=== PATIENT | male | born 1970 | race Caucasian/White ===

== ENCOUNTER 2021-12-13 09:10 | Emergency (ER) | payer OTHER ==
[~2021-12-13] VITALS: Ht 175.3 cm; Wt 75.0 kg
[2021-12-13 10:06] LABS: Urine Bacteria NONE SEEN /hpf (None Seen); Urine Blood Negative /uL (Negative); Urine Specific Gravity 1.005 (1.001-1.035); Urine WBC <1 /hpf (0 - 3)
[2021-12-13 10:56] LABS: Basophils # (auto) 0.1 10 ^3/uL (0-0.2); Basophils % (auto) 0.7 % (0.0-2.0); Eosinophils # (auto) 0.6 10 ^3/uL (0-0.8); Eosinophils % (auto) 4.1 % (0.0-7.0); Hematocrit 39.4 % (41.0-53.0); Hemoglobin 13.3 g/dL (13.5-17.5); Lymphocytes # (auto) 2.1 10 ^3/uL (0.4-5.4); Lymphocytes % (auto) 14.4 % (10.0-50.0); Mean Corpuscular Hemoglobin 29.4 pg (28.0-32.0); Mean Corpuscular Hgb Conc. 33.8 g/dL (32.0-36.0); Monocytes # (auto) 0.7 10 ^3/uL (0-1.3); Neutrophils # (auto) 10.8 10 ^3/uL (1.6-8.6); Neutrophils % (auto) 75.8 % (37.0-80.0); Red Blood Cells 4.53 10^6/uL (4.5-5.90); Red Cell Distribution Width 13.9 % (11.8-14.3); White Blood Cell 14.3 10^3/uL (4.4-10.8)
[2021-12-13 11:00] LABS: Albumin 2.9 g/dL (3.4-5.0); Calcium 8.8 mg/dL (8.5-10.1); Potassium 3.6 mmol/L (3.5-5.1)
[2021-12-13 11:04] LABS: BUN/Creatinine Ratio 9.8; Bilirubin, Total 0.5 mg/dL (0.2-1.0); Total Protein 7.7 g/dL (6.4-8.2)
[2021-12-13 11:55] VITALS: BP 117/63
== END 2021-12-13 12:07 | disposition home or self-care (01) ==
LOC: ER 09:10
DX: R42 Dizziness and giddiness (principal)
CPT/HCPCS: 36415; 70450; 80053; 81001; 85025; 93005

== ENCOUNTER 2022-05-07 11:56 | Emergency (ER) | payer OTHER ==
[~2022-05-07] VITALS: Ht 175.3 cm; Wt 75.0 kg
[2022-05-07 15:51] VITALS: BP 124/61
[2022-05-07] MEDS ORDERED: AZITTAB PO (15:58)
[2022-05-07] MEDS ORDERED: ALBU108A5 IN (15:58)
[2022-05-07] MEDS ORDERED: GABA100C9 PO (16:01)
[2022-05-07] MEDS ORDERED: IBUP600T28 PO (16:03)
== END 2022-05-07 16:01 | disposition home or self-care (01) ==
LOC: ER 11:56
DX: S80.02XA Contusion of left knee, initial encounter (principal); J18.9 Pneumonia, unspecified organism; Z20.822 Contact with and (suspected) exposure to COVID-19; W18.39XA Other fall on same level, initial encounter; Y93.89 Activity, other specified; Y92.89 Other specified places as the place of occurrence of the external cause; Y99.8 Other external cause status
CPT/HCPCS: 36415; 73562; 87426; 87804

== ENCOUNTER 2022-05-11 10:17 | Inpatient (IN) | payer OTHER ==
[~2022-05-11] VITALS: Ht 177.8 cm; Wt 74.0 kg
[~2022-05-11 10:17] MED LIST: ALBU108A5 IN; AZITTAB PO; GABA100C9 PO; IBUP600T28 PO
[2022-05-11 11:28] LABS: Hematocrit 37.2 % (41.0-53.0); Mean Corpuscular Hemoglobin 28.2 pg (28.0-32.0); Mean Corpuscular Hgb Conc. 32.2 g/dL (32.0-36.0); Mean Corpuscular Volume 87.4 fL (80.0-100.0); Red Blood Cells 4.26 10^6/uL (4.5-5.90); Red Cell Distribution Width 13.5 % (11.8-14.3)
[2022-05-11] MEDS ORDERED: AZITHROMYCIN 500MG/ 250ML 250 ML IV ONE (11:30)
[2022-05-11] MEDS ORDERED: cefTRIAXone 1GM/50ML D5W 50 ML IV ONE (11:30)
[2022-05-11 11:43] LABS: Basophils % (manual) 0 (0.0-2.0); Blast Cells 0; Eosinophils % (manual) 0 (0-7); Metamyelocytes % 0; Myelocytes % 0; Promyelocytes % 0; Reactive Lymphocytes 0
[2022-05-11 11:45] LABS: Albumin 2.7 g/dL (3.4-5.0); BUN/Creatinine Ratio 16.7; Calcium 8.1 mg/dL (8.5-10.1); Potassium 4.2 mmol/L (3.5-5.1)
[2022-05-11 11:50] LABS: Bilirubin, Total 1.1 mg/dL (0.2-1.0); Total Protein 6.9 g/dL (6.4-8.2)
[2022-05-11 13:38] LABS: Band Neutrophils % (manual) 10; Lymphocytes % (manual) 12 (10.0-50.0); Monocytes % (manual) 9 (0-12)
[2022-05-11] MEDS ORDERED: MORPHINE SULFATE INJ 2 MG/ml SYRG IV PRN (15:30)
[2022-05-11] MEDS ORDERED: ALBUTEROL SULF 2.5 MG/0.5ML(0.5%) NEB SOLN HHN PRN (15:30)
[2022-05-11] MEDS ORDERED: IPRATROPIUM BROM 0.5 MG/2.5ML INH SOL NEB PRN (15:30)
[2022-05-11] MEDS ORDERED: NITROGLYCERIN 0.4 MG SL TAB SL PRN (15:30)
[2022-05-11] MEDS ORDERED: methylPREDNISolone SOD SUCC 125 MG/2 ML VL IV ONE (15:45)
[2022-05-11] MEDS: SODIUM CHLORIDE 0.9% 1,000 ML IV SCH (16:11)
[2022-05-11 21:12] VITALS: BP 97/50
[2022-05-11] MEDS: HEPARIN SODIUM (PORCINE) 5000 UNITS/ML 1ML VIAL SC SCH (21:17)
[2022-05-11 22:00] VITALS: BP 97/50
[2022-05-11] MEDS: methylPREDNISolone SOD SUCC 125 MG/2 ML VL IV SCH (23:32)
[2022-05-12] MEDS ORDERED: CITA-73 PO (00:28)
[2022-05-12] MEDS ORDERED: ATOR80TA PO (00:28)
[2022-05-12] MEDS ORDERED: CLON-857 PO (00:28)
[2022-05-12] MEDS ORDERED: LEVE500T32 PO (00:28)
[2022-05-12 01:34] VITALS: BP 97/50
[2022-05-12 05:00] VITALS: BP 105/62
[2022-05-12] MEDS: HEPARIN SODIUM (PORCINE) 5000 UNITS/ML 1ML VIAL SC SCH ×3 (05:01→22:00)
[2022-05-12] MEDS: methylPREDNISolone SOD SUCC 125 MG/2 ML VL IV SCH ×3 (05:02→18:00)
[2022-05-12] MEDS: SODIUM CHLORIDE 0.9% 1,000 ML IV SCH ×2 (05:48→22:40)
[2022-05-12 06:39] LABS: Basophils # (auto) 0 10 ^3/uL (0-0.2); Basophils % (auto) 0.1 % (0.0-2.0); Eosinophils # (auto) 0 10 ^3/uL (0-0.8); Eosinophils % (auto) 0.1 % (0.0-7.0); Hematocrit 33.6 % (41.0-53.0); Hemoglobin 10.9 g/dL (13.5-17.5); Lymphocytes # (auto) 1.7 10 ^3/uL (0.4-5.4); Lymphocytes % (auto) 9.3 % (10.0-50.0); Mean Corpuscular Hemoglobin 28.3 pg (28.0-32.0); Mean Corpuscular Hgb Conc. 32.4 g/dL (32.0-36.0); Mean Corpuscular Volume 87.4 fL (80.0-100.0); Monocytes # (auto) 0.4 10 ^3/uL (0-1.3); Monocytes % (auto) 2.1 % (0.0-12.0); Neutrophils # (auto) 16.7 10 ^3/uL (1.6-8.6); Neutrophils % (auto) 88.4 % (37.0-80.0); Red Blood Cells 3.85 10^6/uL (4.5-5.90); Red Cell Distribution Width 13.8 % (11.8-14.3); White Blood Cell 18.8 10^3/uL (4.4-10.8)
[2022-05-12 07:12] LABS: BUN/Creatinine Ratio 23.2; Calcium 8.1 mg/dL (8.5-10.1); Potassium 4.8 mmol/L (3.5-5.1)
[2022-05-12 09:00] VITALS: BP 106/76
[2022-05-12] MEDS: levoFLOXacin 750MG 150 ML IV SCH (10:10)
[2022-05-12] MEDS ORDERED: IOHEXOL 300 MG/ML 100ML BOTTLE IJ ONE (12:05)
[2022-05-12] MEDS ORDERED: IOHEXOL 350 MG/ML 100ML IJ ONE (12:24)
[2022-05-12 13:14] VITALS: BP 120/60
[2022-05-12 16:33] VITALS: BP 110/71
[2022-05-12 22:00] VITALS: BP 110/67
[2022-05-13 05:00] VITALS: BP 119/68
[2022-05-13] MEDS: methylPREDNISolone SOD SUCC 125 MG/2 ML VL IV SCH ×4 (05:13→18:00)
[2022-05-13] MEDS: HEPARIN SODIUM (PORCINE) 5000 UNITS/ML 1ML VIAL SC SCH ×3 (05:14→22:00)
[2022-05-13 08:00] VITALS: BP 109/61
[2022-05-13 08:04] LABS: BUN/Creatinine Ratio 28.9; Calcium 8.5 mg/dL (8.5-10.1)
[2022-05-13 08:22] LABS: Hematocrit 37.6 % (41.0-53.0); Hemoglobin 12.2 g/dL (13.5-17.5); Mean Corpuscular Hemoglobin 28.6 pg (28.0-32.0); Mean Corpuscular Hgb Conc. 32.4 g/dL (32.0-36.0); Mean Corpuscular Volume 88.4 fL (80.0-100.0); Red Blood Cells 4.25 10^6/uL (4.5-5.90); Red Cell Distribution Width 13.8 % (11.8-14.3)
[2022-05-13 09:11] LABS: Basophils % (manual) 0 (0.0-2.0); Blast Cells 0; Eosinophils % (manual) 0 (0-7); Metamyelocytes % 0; Myelocytes % 0; Promyelocytes % 0; Reactive Lymphocytes 0
[2022-05-13] MEDS: levoFLOXacin 750MG 150 ML IV SCH (10:00)
[2022-05-13] MEDS: SODIUM CHLORIDE 0.9% 1,000 ML IV SCH (10:24)
[2022-05-13 12:00] VITALS: BP 124/73
[2022-05-13 16:00] VITALS: BP 131/76
[2022-05-13 18:29] LABS: Band Neutrophils % (manual) 17; Lymphocytes % (manual) 7 (10.0-50.0); Monocytes % (manual) 3 (0-12)
[2022-05-13 18:57] LABS: Urine Bacteria NONE SEEN /hpf (None Seen); Urine Blood Negative /uL (Negative); Urine Specific Gravity 1.024 (1.001-1.035); Urine WBC 1 /hpf (0 - 3)
[2022-05-13 19:04] LABS: Creatinine, Urine 104 mg/dL (30.0-125.0); Sodium Urine 41 mmol/L (40-220)
[2022-05-13 22:00] VITALS: BP 114/68
[2022-05-14] MEDS: SODIUM CHLORIDE 0.9% 1,000 ML IV SCH ×2 (00:26→15:00)
[2022-05-14] MEDS: methylPREDNISolone SOD SUCC 125 MG/2 ML VL IV SCH ×4 (05:59→18:00)
[2022-05-14] MEDS: HEPARIN SODIUM (PORCINE) 5000 UNITS/ML 1ML VIAL SC SCH ×3 (05:59→22:00)
[2022-05-14 08:00] VITALS: BP 143/78
[2022-05-14 08:30] VITALS: BP 143/78
[2022-05-14] MEDS: levoFLOXacin 750MG 150 ML IV SCH (10:18)
[2022-05-14 12:30] VITALS: BP 151/80
[2022-05-14 17:00] VITALS: BP 152/79
[2022-05-14 20:00] VITALS: BP 152/79
[2022-05-14 22:00] VITALS: BP 143/77
[2022-05-14] MEDS: DOXYCYCLINE 100MG/250ML 250 ML IV SCH (22:00)
[2022-05-14] MEDS: levETIRAcetam 500 MG TAB PO SCH (22:00)
[2022-05-15 05:00] VITALS: BP 137/69
[2022-05-15] MEDS: SODIUM CHLORIDE 0.9% 1,000 ML IV SCH ×2 (05:02→19:36)
[2022-05-15] MEDS: HEPARIN SODIUM (PORCINE) 5000 UNITS/ML 1ML VIAL SC SCH ×3 (05:02→22:27)
[2022-05-15 09:00] VITALS: BP 118/66
[2022-05-15] MEDS ORDERED: methylPREDNISolone SOD SUCC 40 MG/ML VL IV SCH (10:00)
[2022-05-15] MEDS: levETIRAcetam 500 MG TAB PO SCH ×2 (10:13→22:11)
[2022-05-15] MEDS: DOXYCYCLINE 100MG/250ML 250 ML IV SCH ×2 (10:14→22:11)
[2022-05-15] MEDS ORDERED: PRED20TA2 PO (11:57)
[2022-05-15] MEDS ORDERED: AMOX500T86 PO (11:58)
[2022-05-15 13:00] VITALS: BP 140/80
[2022-05-15 16:56] VITALS: BP 154/76
[2022-05-15 20:00] VITALS: BP 128/68
[2022-05-15 22:00] VITALS: BP 128/68
[2022-05-16 05:00] VITALS: BP 135/61
[2022-05-16] MEDS: HEPARIN SODIUM (PORCINE) 5000 UNITS/ML 1ML VIAL SC SCH (06:42)
[2022-05-16 09:00] VITALS: BP 122/77
== END 2022-05-16 12:47 | disposition home or self-care (01) | DRG 137 ==
LOC: EDBD 10:17 → ER 10:17 → TELE 15:27 → TELE-WESTW 20:58
PROVIDERS: ADMIT Nurse Practitioner Family; ATTEND Internal Medicine Pulmonary Disease
DX: J15.6 Pneumonia due to other Gram-negative bacteria (principal); J96.01 Acute respiratory failure with hypoxia; G93.41 Metabolic encephalopathy; E46 Unspecified protein-calorie malnutrition; N17.9 Acute kidney failure, unspecified; R56.9 Unspecified convulsions; J44.0 Chronic obstructive pulmonary disease with (acute) lower respiratory infection; R79.89 Other specified abnormal findings of blood chemistry; Z20.822 Contact with and (suspected) exposure to COVID-19; J44.1 Chronic obstructive pulmonary disease with (acute) exacerbation; Z86.73 Personal history of transient ischemic attack (TIA), and cerebral infarction without residual deficits; Z71.6 Tobacco abuse counseling; Z87.891 Personal history of nicotine dependence
CPT/HCPCS: 36415; 36600; 70450; 71045; 71275; 80048; 80053; 81001; 82570; 82805; 83605; 83880; 84300; 85007; 85025; 85027; 85379; 87040; 87081; 87426; 93005; 94640; 96365; 96366; 96367; 96375; 99291; G0378; J0696; J1956; J3490

== ENCOUNTER 2022-08-12 21:30 | Inpatient (IN) | payer OTHER ==
[~2022-08-12] VITALS: Ht 175.3 cm; Wt 70.3 kg
[~2022-08-12 21:30] MED LIST changes: +AMOX500T86 PO; +ATOR80TA PO; -AZITTAB PO; +CITA-73 PO; +CLON-857 PO; +LEVE500T32 PO; +PRED20TA2 PO
[2022-08-12] MEDS ORDERED: SODIUM CHLORIDE 0.9% 1,000 ML IV ONE (22:30)
[2022-08-12 23:09] LABS: Basophils # (auto) 0.1 10 ^3/uL (0-0.2); Basophils % (auto) 0.4 % (0.0-2.0); Eosinophils # (auto) 0.1 10 ^3/uL (0-0.8); Eosinophils % (auto) 0.8 % (0.0-7.0); Hematocrit 38.9 % (41.0-53.0); Hemoglobin 12.8 g/dL (13.5-17.5); Lymphocytes # (auto) 2.5 10 ^3/uL (0.4-5.4); Lymphocytes % (auto) 14.8 % (10.0-50.0); Mean Corpuscular Hemoglobin 28.6 pg (28.0-32.0); Mean Corpuscular Hgb Conc. 32.8 g/dL (32.0-36.0); Mean Corpuscular Volume 87.1 fL (80.0-100.0); Monocytes % (auto) 5.9 % (0.0-12.0); Neutrophils # (auto) 13.4 10 ^3/uL (1.6-8.6); Neutrophils % (auto) 78.1 % (37.0-80.0); Nucleated Red Blood Cells % 0.1 %; Red Blood Cells 4.47 10^6/uL (4.5-5.90); Red Cell Distribution Width 14.9 % (11.8-14.3); White Blood Cell 17.2 10^3/uL (4.4-10.8)
[2022-08-12 23:33] LABS: Albumin 3.3 g/dL (3.4-5.0); Anion Gap 6 (5-15); Blood Urea Nitrogen 9 mg/dL (7-18); Calcium 7.4 mg/dL (8.5-10.1); Carbon Dioxide 26 mmol/L (21-32); Chloride 105 mmol/L (98-107); Glucose 91 mg/dL (74-106); Sodium 137 mmol/L (136-145)
[2022-08-12 23:36] LABS: Alanine Aminotransferase 17 U/L (16-61); Aspartate Aminotransferase 34 U/L (15-37); BUN/Creatinine Ratio 6.3; Blood Alcohol < 3.0 mg/dL (0-5); GFR African American 67 mL/min; GFR Non-African American 55 mL/min
[2022-08-12 23:38] LABS: Alkaline Phosphatase 85 U/L (45-117); Bilirubin, Total 0.4 mg/dL (0.2-1.0); Total Protein 6.7 g/dL (6.4-8.2)
[2022-08-13] MEDS ORDERED: cefTRIAXone 1GM/50ML D5W 50 ML IV ONE (02:15)
[2022-08-13] MEDS ORDERED: NITROGLYCERIN 0.4 MG SL TAB SL PRN (02:15)
[2022-08-13] MEDS ORDERED: ONDANSETRON HCL 4 MG/2 ML VIAL IV PRN (02:15)
[2022-08-13] MEDS ORDERED: ACETAMINOPHEN 325 MG TAB PO PRN (02:15)
[2022-08-13] MEDS ORDERED: MORPHINE SULFATE INJ 2 MG/ml SYRG IV PRN ×2 (02:15)
[2022-08-13] MEDS ORDERED: IBUPROFEN 600 MG TAB PO PRN (02:15)
[2022-08-13] MEDS ORDERED: HYDROcodone-ACET 5/325MG TAB PO PRN (02:15)
[2022-08-13] MEDS ORDERED: DOCUSATE SOD 100 MG CAP PO PRN (02:15)
[2022-08-13] MEDS: SODIUM CHLORIDE 0.9% 1,000 ML IV SCH ×3 (03:09→20:19)
[2022-08-13 04:25] LABS: Alcohol, Urine < 3.0 mg/dL (0-10); Amphetamine Screen, Urine NEGATIVE (NEGATIVE); Barbiturate Scree,Urine NEGATIVE (NEGATIVE); Benzodiazephine Screen, Urine NEGATIVE (NEGATIVE); Cannabinoid Screen, Urine NEGATIVE (NEGATIVE); Cocaine Screen, Urine NEGATIVE (NEGATIVE); Opiate Scree,Urine NEGATIVE (NEGATIVE); Phencyclidine Screen, Urine NEGATIVE (NEGATIVE)
[2022-08-13 05:40] LABS: Basophils # (auto) 0.1 10 ^3/uL (0-0.2); Basophils % (auto) 0.6 % (0.0-2.0); Eosinophils # (auto) 0.2 10 ^3/uL (0-0.8); Eosinophils % (auto) 1.3 % (0.0-7.0); Hematocrit 37.1 % (41.0-53.0); Hemoglobin 12.3 g/dL (13.5-17.5); Lymphocytes # (auto) 3.9 10 ^3/uL (0.4-5.4); Lymphocytes % (auto) 22.2 % (10.0-50.0); Mean Corpuscular Hemoglobin 28.6 pg (28.0-32.0); Mean Corpuscular Volume 86.8 fL (80.0-100.0); Monocytes # (auto) 1.1 10 ^3/uL (0-1.3); Monocytes % (auto) 6.2 % (0.0-12.0); Neutrophils # (auto) 12.2 10 ^3/uL (1.6-8.6); Neutrophils % (auto) 69.7 % (37.0-80.0); Red Blood Cells 4.28 10^6/uL (4.5-5.90); Red Cell Distribution Width 15.2 % (11.8-14.3); White Blood Cell 17.6 10^3/uL (4.4-10.8)
[2022-08-13 05:53] LABS: Potassium 3.7 mmol/L (3.5-5.1)
[2022-08-13 06:08] LABS: BUN/Creatinine Ratio 6.9; Bilirubin, Total 0.5 mg/dL (0.2-1.0); Calcium 7.2 mg/dL (8.5-10.1); Total Protein 6.3 g/dL (6.4-8.2)
[2022-08-13] MEDS: FAMOTIDINE (10MG/ML) 2ML VL IV SCH (10:17)
[2022-08-13 11:13] LABS: Urine Bacteria NONE SEEN /hpf (None Seen); Urine Blood TRACE /uL (Negative); Urine Specific Gravity 1.006 (1.001-1.035); Urine WBC <1 /hpf (0 - 3)
[2022-08-13] MEDS ORDERED: ATORVASTATIN 20 MG TAB PO ONE (11:15)
[2022-08-13] MEDS ORDERED: IPRATROPIUM BROM 0.5 MG/2.5ML INH SOL NEB PRN (11:15)
[2022-08-13] MEDS ORDERED: ASPirin 81 mg TAB PO ONE (11:15)
[2022-08-13] MEDS ORDERED: ALBUTEROL SULF 2.5 MG/0.5ML(0.5%) NEB SOLN NEB PRN (11:15)
[2022-08-13] MEDS ORDERED: AZITHROMYCIN 250 MG TAB PO ONE (11:15)
[2022-08-13 11:22] LABS: Free T4 (Free Thyroxine) 0.78 ng/dL (0.89-1.76)
[2022-08-13 11:23] LABS: Folate (Folic Acid) 9.84 ng/mL (5.38-24)
[2022-08-13 12:43] VITALS: BP 110/60
[2022-08-13] MEDS: NICOTINE 21MG/24 HR TOPICAL PATCH TD SCH (13:58)
[2022-08-13] MEDS ORDERED: LORazepam 2MG/ML-1ML VIAL IV PRN (21:45)
[2022-08-13] MEDS: clonazePAM 0.5 MG TAB PO SCH (22:00)
[2022-08-13] MEDS ORDERED: ATORVASTATIN 20 MG TAB PO SCH (22:00)
[2022-08-13 23:07] VITALS: BP 104/53
[2022-08-13] MEDS ORDERED: levETIRAcetam 500 MG/5ML INJ IV ONE (23:37)
[2022-08-14 05:00] VITALS: BP 105/60
[2022-08-14 06:19] LABS: Basophils # (auto) 0 10 ^3/uL (0-0.2); Basophils % (auto) 0.5 % (0.0-2.0); Eosinophils # (auto) 0.2 10 ^3/uL (0-0.8); Eosinophils % (auto) 2.1 % (0.0-7.0); Hemoglobin 12.5 g/dL (13.5-17.5); Lymphocytes # (auto) 2.8 10 ^3/uL (0.4-5.4); Mean Corpuscular Hemoglobin 28.9 pg (28.0-32.0); Mean Corpuscular Volume 87.6 fL (80.0-100.0); Monocytes # (auto) 0.8 10 ^3/uL (0-1.3); Monocytes % (auto) 7.1 % (0.0-12.0); Neutrophils # (auto) 6.8 10 ^3/uL (1.6-8.6); Neutrophils % (auto) 64.3 % (37.0-80.0); Nucleated Red Blood Cells % 0.1 %; Potassium 3.5 mmol/L (3.5-5.1); Red Blood Cells 4.33 10^6/uL (4.5-5.90); Red Cell Distribution Width 15.1 % (11.8-14.3); White Blood Cell 10.6 10^3/uL (4.4-10.8)
[2022-08-14 06:28] LABS: Albumin 2.5 g/dL (3.4-5.0); BUN/Creatinine Ratio 11.2 (10.0-20.0); Bilirubin, Total 0.7 mg/dL (0.2-1.0); Calcium 7.6 mg/dL (8.5-10.1); Magnesium 1.6 mg/dL (1.6-2.6); Total Protein 5.6 g/dL (6.4-8.2)
[2022-08-14 08:00] VITALS: BP 98/59
[2022-08-14 08:30] VITALS: BP 98/59
[2022-08-14] MEDS ORDERED: cefTRIAXone 1GM/50ML D5W 50 ML IV SCH (09:00)
[2022-08-14] MEDS: FAMOTIDINE (10MG/ML) 2ML VL IV SCH (09:35)
[2022-08-14] MEDS: NICOTINE 21MG/24 HR TOPICAL PATCH TD SCH (09:35)
[2022-08-14] MEDS ORDERED: THIAMINE 100mg/ml INJ (200mg/2ml VIAL) IV SCH (10:00)
[2022-08-14] MEDS ORDERED: ASPirin 81 mg TAB PO SCH (10:00)
[2022-08-14] MEDS ORDERED: AZITHROMYCIN 250 MG TAB PO SCH (10:00)
[2022-08-14] MEDS: clonazePAM 0.5 MG TAB PO SCH (10:30)
[2022-08-14] MEDS: SODIUM CHLORIDE 0.9% 1,000 ML IV SCH ×2 (12:50→13:50)
[2022-08-14 13:00] VITALS: BP 100/59
[2022-08-14] MEDS ORDERED: CEPH-510 PO (14:50)
[2022-08-14] MEDS ORDERED: PRED20TA2 PO (14:50)
[2022-08-14] MEDS ORDERED: AZIT250T9 PO (14:50)
[2022-08-14 17:00] VITALS: BP 113/67
[2022-08-14 17:08] VITALS: BP 113/67
[2022-08-14] MEDS ORDERED: DOXYCYCLINE 100 MG TAB/CAP PO SCH (22:00)
== END 2022-08-14 18:10 | disposition home or self-care (01) | DRG 53 ==
LOC: ER 21:30 → EDBD 21:30 → EDUNIT# 21:30 → TELE 08-13 02:16 → TELE-EAST 08-13 22:30
PROVIDERS: ADMIT Nurse Practitioner Family; ATTEND Internal Medicine
DX: G40.909 Epilepsy, unspecified, not intractable, without status epilepticus (principal); N17.0 Acute kidney failure with tubular necrosis; G92.8 Other toxic encephalopathy; E44.0 Moderate protein-calorie malnutrition; J18.0 Bronchopneumonia, unspecified organism; J44.1 Chronic obstructive pulmonary disease with (acute) exacerbation; D72.829 Elevated white blood cell count, unspecified; F10.10 Alcohol abuse, uncomplicated; N30.00 Acute cystitis without hematuria; J44.0 Chronic obstructive pulmonary disease with (acute) lower respiratory infection; R27.8 Other lack of coordination; R91.1 Solitary pulmonary nodule; Z20.822 Contact with and (suspected) exposure to COVID-19; Z79.82 Long term (current) use of aspirin; Z79.899 Other long term (current) drug therapy; Z82.49 Family history of ischemic heart disease and other diseases of the circulatory system; Z68.22 Body mass index [BMI] 22.0-22.9, adult; Z86.73 Personal history of transient ischemic attack (TIA), and cerebral infarction without residual deficits; Z71.6 Tobacco abuse counseling; Z72.0 Tobacco use
CPT/HCPCS: 36415; 70450; 70551; 71045; 71250; 80053; 80307; 80320; 81001; 82140; 82542; 82607; 82746; 83735; 84439; 84443; 85025; 87040; 87086; 87426; 93005; 95819; 96361; 96365; 96367; 96375; G0378; J0696; J3490; J7060

== ENCOUNTER 2022-11-18 04:23 | Emergency (ER) | payer OTHER ==
[~2022-11-18] VITALS: Ht 175.3 cm; Wt 80.0 kg
[~2022-11-18 04:23] MED LIST changes: -AMOX500T86 PO; +AZIT-43 PO; +CEPH-510 PO; +GABA-1308 PO; -GABA100C9 PO; -IBUP600T28 PO; -LEVE500T32 PO; +LEVE500T40 PO
[2022-11-18 05:57] LABS: Basophils # (auto) 0.2 10 ^3/uL (0-0.2); Basophils % (auto) 0.6 % (0.0-2.0); Eosinophils # (auto) 0 10 ^3/uL (0-0.8); Eosinophils % (auto) 0.1 % (0.0-7.0); Hematocrit 36.2 % (41.0-53.0); Hemoglobin 12.1 g/dL (13.5-17.5); Lymphocytes # (auto) 2.8 10 ^3/uL (0.4-5.4); Lymphocytes % (auto) 11.1 % (10.0-50.0); Mean Corpuscular Hemoglobin 28.5 pg (28.0-32.0); Mean Corpuscular Hgb Conc. 33.3 g/dL (32.0-36.0); Mean Corpuscular Volume 85.5 fL (80.0-100.0); Monocytes # (auto) 1.1 10 ^3/uL (0-1.3); Monocytes % (auto) 4.6 % (0.0-12.0); Neutrophils # (auto) 20.7 10 ^3/uL (1.6-8.6); Neutrophils % (auto) 83.6 % (37.0-80.0); Potassium 4.1 mmol/L (3.5-5.1); Red Blood Cells 4.23 10^6/uL (4.5-5.90); Red Cell Distribution Width 15.5 % (11.8-14.3); White Blood Cell 24.8 10^3/uL (4.4-10.8)
[2022-11-18 06:06] LABS: Albumin 3.2 g/dL (3.4-5.0); BUN/Creatinine Ratio 10.4 (10.0-20.0); Bilirubin, Total 0.7 mg/dL (0.2-1.0); Calcium 7.5 mg/dL (8.5-10.1); Magnesium 2.1 mg/dL (1.6-2.6); Total Protein 6.6 g/dL (6.4-8.2)
[2022-11-18] MEDS ORDERED: AMOX500T86 PO (13:01)
[2022-11-18] MEDS ORDERED: ACETAMINOPHEN 650 mg PER 20.3 mL UD PO ONE (15:30)
[2022-11-18 16:18] VITALS: BP 107/60
== END 2022-11-18 16:37 | disposition short-term general hospital (02) ==
LOC: ER 04:23 → EDBD 04:23 → ER 16:37
DX: S02.85XA Fracture of orbit, unspecified, initial encounter for closed fracture (principal); S09.90XA Unspecified injury of head, initial encounter; J18.9 Pneumonia, unspecified organism; F17.210 Nicotine dependence, cigarettes, uncomplicated; J44.9 Chronic obstructive pulmonary disease, unspecified; Z86.73 Personal history of transient ischemic attack (TIA), and cerebral infarction without residual deficits; W18.39XA Other fall on same level, initial encounter; Y93.89 Activity, other specified; Y92.89 Other specified places as the place of occurrence of the external cause; Y99.8 Other external cause status
CPT/HCPCS: 36415; 70450; 70486; 71045; 72125; 80053; 83735; 85025; 93005; 96365; 99291; J1953; J7060

== ENCOUNTER 2023-01-18 08:09 | Emergency (ER) | payer OTHER ==
[~2023-01-18] VITALS: Ht 175.3 cm; Wt 68.1 kg
[~2023-01-18 08:09] MED LIST changes: +AMOX500T86 PO
[2023-01-18] MEDS ORDERED: IOHEXOL 300 MG/ML 100ML BOTTLE IJ ONE (08:43)
[2023-01-18 08:51] LABS: Basophils # (auto) 0.2 10 ^3/uL (0-0.2); Basophils % (auto) 1.3 % (0.0-2.0); Eosinophils # (auto) 0.3 10 ^3/uL (0-0.8); Eosinophils % (auto) 2.4 % (0.0-7.0); Hematocrit 44.7 % (41.0-53.0); Hemoglobin 14.4 g/dL (13.5-17.5); Lymphocytes # (auto) 3.2 10 ^3/uL (0.4-5.4); Mean Corpuscular Hemoglobin 29.8 pg (28.0-32.0); Mean Corpuscular Hgb Conc. 32.3 g/dL (32.0-36.0); Mean Corpuscular Volume 92.3 fL (80.0-100.0); Monocytes # (auto) 1.1 10 ^3/uL (0-1.3); Monocytes % (auto) 7.9 % (0.0-12.0); Neutrophils # (auto) 8.6 10 ^3/uL (1.6-8.6); Neutrophils % (auto) 64.4 % (37.0-80.0); Red Blood Cells 4.84 10^6/uL (4.5-5.90); Red Cell Distribution Width 18.7 % (11.8-14.3); White Blood Cell 13.3 10^3/uL (4.4-10.8)
[2023-01-18 09:16] LABS: Alanine Aminotransferase 32 U/L (7-40); Albumin 4.1 g/dL (3.2-4.8); Alkaline Phosphatase 114 U/L (46-116); Anion Gap 6.3 (5-15); Aspartate Aminotransferase 44 U/L (13-40); Calcium 8.4 mg/dL (8.5-10.1); Carbon Dioxide 26.7 mmol/L (20-30); Chloride 107 mmol/L (98-107); Glucose 81 mg/dL (74-106); Potassium 4.2 mmol/L (3.5-5.1); Sodium 140 mmol/L (136-145)
[2023-01-18 09:17] LABS: Bilirubin, Total 0.8 mg/dL (0.2-1.0); Total Protein 6.9 g/dL (5.7-8.2)
[2023-01-18 09:18] LABS: BUN/Creatinine Ratio 5.1 (10.0-20.0); Blood Urea Nitrogen < 5 mg/dL (9-23)
[2023-01-18 09:34] VITALS: PULSE 62; RESP 20; O2SAT 96
[2023-01-18] MEDS ORDERED: IBU600T PO (10:29)
[2023-01-18 11:00] VITALS: BP 137/87; PULSE 66; RESP 20; TEMP 98.8; O2SAT 96
== END 2023-01-18 11:10 | disposition home or self-care (01) ==
LOC: EDBD 08:09 → ER 08:09 → EDUNIT# 08:09 → ER 11:10
DX: S09.8XXA Other specified injuries of head, initial encounter (principal); M25.522 Pain in left elbow; M79.602 Pain in left arm; M79.18 Myalgia, other site; F17.210 Nicotine dependence, cigarettes, uncomplicated; J44.9 Chronic obstructive pulmonary disease, unspecified; Z86.73 Personal history of transient ischemic attack (TIA), and cerebral infarction without residual deficits; V49.9XXA Car occupant (driver) (passenger) injured in unspecified traffic accident, initial encounter; Y93.89 Activity, other specified; Y92.89 Other specified places as the place of occurrence of the external cause; Y99.8 Other external cause status
CPT/HCPCS: 36415; 70450; 71260; 72125; 73070; 74177; 80053; 85025; 99285; Q9967